=== PATIENT | female | born 1950 | race Caucasian/White ===

== ENCOUNTER → 2018-02-15 | Outpatient (CLI) | payer MEDICARE | LOC: MAMMO 10:29 | DX: Z12.31 Encounter for screening mammogram for malignant neoplasm of breast (principal) ==

== ENCOUNTER → 2018-02-15 | Outpatient (CLI) | payer MEDICARE | LOC: RAD 10:29 → MAMMO 11:30 | DX: Z13.820 Encounter for screening for osteoporosis (principal); M85.80 Other specified disorders of bone density and structure, unspecified site ==

== ENCOUNTER 2018-03-10 14:30 | Outpatient (RCR) | payer MEDICARE | END 2018-03-10 15:00 | disposition home or self-care (01) | LOC: PT 14:30 | DX: M25.552 Pain in left hip (principal); M25.551 Pain in right hip; M24.559 Contracture, unspecified hip | CPT/HCPCS: G8978-GP; G8979-GP ==

== ENCOUNTER → 2018-09-09 | Outpatient (CLI) | payer MEDICARE | LOC: PT 10:09 → EDSTATUS 10:10 | DX: M16.0 Bilateral primary osteoarthritis of hip (principal) ==

== ENCOUNTER 2018-09-27 12:55 | Outpatient (RCR) | payer MEDICARE | END 2018-09-27 14:00 | LOC: PT 12:55 | DX: M16.12 Unilateral primary osteoarthritis, left hip (principal) ==

== ENCOUNTER → 2020-04-11 | Outpatient (CLI) | payer MEDICARE | LOC: MAMMO 09:51 | DX: Z12.31 Encounter for screening mammogram for malignant neoplasm of breast (principal); M85.89 Other specified disorders of bone density and structure, multiple sites; Z78.0 Asymptomatic menopausal state ==

== ENCOUNTER → 2020-04-11 | Outpatient (CLI) | payer MEDICARE | LOC: MAMMO 09:50 | DX: Z12.31 Encounter for screening mammogram for malignant neoplasm of breast (principal); M85.89 Other specified disorders of bone density and structure, multiple sites; Z78.0 Asymptomatic menopausal state ==